=== PATIENT | female | born 1950 | race Caucasian/White ===

== ENCOUNTER 2018-12-30 13:11 | Observation (INO) | payer MEDICARE ==
[~2018-12-30] VITALS: Ht 160 cm; Wt 69.9 kg
[2018-12-30] VITALS (7 sets, daily range): BP systolic 118–149; BP diastolic 62–75
[~2018-12-30 13:11] MED LIST: ASPI-715 PO; CALC-547 PO; CETI10CA8 PO; CHOLESTEROL MED; CYC10 PO; FLUTR; LANS30CA70 PO; LISI-355 PO; MON10 PO; OLOOD OP; PER PO; RAL60 PO; [UNRECOGNIZED DRUG - CODE] PO; [UNRECOGNIZED DRUG - OTHER]
[2018-12-30] MEDS ORDERED: AMLO-125 PO (13:24)
[2018-12-30] MEDS ORDERED: ALLO100T70 PO (13:24)
[2018-12-30] MEDS ORDERED: OLOP30.53 NS (13:24)
[2018-12-30] MEDS ORDERED: LEVO25TA61 PO (13:24)
[2018-12-30] MEDS ORDERED: AMIT-106 PO (13:24)
[2018-12-30] MEDS ORDERED: METO25TA23 PO (13:24)
--- NOTE | 2018-12-30 14:01 | ER Report ---
History and Physical Time Seen By MD: 13:59 Hx. of Stated Complaint: LOWER ABD PAIN SINCE 0630 THIS AM THAT HAS GOTTEN WORSE. ACCOMPANIED BY DRY HEAVES. WAS CAMPING ALL WEEKEND. DENIES EATING ANY QUESTIONABLE FOOD. UNSURE IF ANY FEVERS. HAD A NORMAL BM THIS MORNING. GALLBLADDER REMOVED IN THE PAST HPI/ROS Lower abdominal pain since yesterday, but today pain worsened and pt. developed RLQ pain. Had normal BM today. Has not been able to take PO. Pain with driving to ED in car. s/p venu. No other abdominal surgeries. s/p breast cancer. No fever. No chest pain or SOB. Remainder of the 14 system rev: Yes Allergies: Coded Allergies: Penicillins (Verified Allergy, Mild, 12/30/18) ciprofloxacin (Verified Allergy, Mild, 12/30/18) tetracycline (Verified Allergy, Mild, 12/30/18) Uncoded Allergies: STATINS (Adverse Reaction, Unknown, 12/30/18) Home Meds Reported Medications Amitriptyline Hcl (AMITRIPTYLINE HCL) 25 Mg Tablet, 25 MG PO QHS, #5 TAB 12/30/18 Amlodipine Besylate (AMLODIPINE BESYLATE) 5 Mg Tablet, 1 TAB PO QDAY, TAB 12/30/18 Metoprolol Succinate (METOPROLOL SUCCINATE) 25 Mg Tab.er.24h, 1 TAB PO QDAY, TAB 12/30/18 Levothyroxine Sodium (LEVOTHYROXINE SODIUM) 25 Mcg Tablet, 25 MCG PO QDAY 12/30/18 Allopurinol (ALLOPURINOL) 100 Mg Tablet, 300 MG PO QDAY, TAB 12/30/18 Olopatadine Hcl (PATANASE) 30.5 Gm [place].pump, 30.5 GM NS 12/30/18 Aspirin (Aspirin) 81 Mg Tablet.dr, 81 MG PO, 0 Refills 03/21/11 Fluticasone Propionate (Flonase) 16 Gm [place], 0 NA QDAY, 0 Refills SPRAY 2 SPRAYS IN EACH NOSTRIL 03/21/11 Calcium Carbonate/Vitamin D3 (Calcium + D 600 Mg Tablet) 1 Each Tablet, 1 EACH PO, 0 Refills 03/21/11 Folic Acid/Mv,Fe,Other Min (Centrum Ultra Women's Tablet) 1 Each Tablet, 1 EACH PO, 0 Refills 03/21/11 Raloxifene Hcl (Evista) 60 Mg Tab, 60 MG PO QDAY, 0 Refills 03/21/11 Discontinued Reported Medications Cyclobenzaprine Hcl (Flexeril) 10 Mg Tab, 10 MG PO TID PRN, #15 0 Refills 03/21/11 Oxycodone/Acetaminophen (OXYCODONE/ACETAMINOPHEN 5MG/325 MG) 5 Mg/325 Mg Tab, 1 TAB PO Q4-6H PRN, #15 0 Refills 03/21/11 Cetirizine Hcl (Zyrtec) 10 Mg Capsule, 10 MG PO, 0 Refills 03/21/11 Olopatadine (Patanol) 5 Ml Drops, 1 GTT OP, 0 Refills 03/21/11 Lisinopril/Hydrochlorothiazide (Lisinopril-Hctz 04/04.5) 1 Each Tablet, 1 EACH PO, 0 Refills 03/21/11 Lansoprazole (Prevacid) 30 Mg Capsule.dr, 30 MG PO QDAY, 0 Refills 03/21/11 Montelukast Sodium (Singulair) 10 Mg Tab, 10 MG PO QDAY, 0 Refills 03/21/11 [Merol Dose Pack] No Conflict Check, 0 Refills 03/21/11 [Cholesterol Med] No Conflict Check, 0 Refills 03/21/11 Reviewed Nurses Notes: Yes Hx Smoking: No Hx Substance Use Disorder: No Hx Alcohol Use: Yes (OCC) Constitutional Vital Sign - Last 24 Hours 12/30/18 13:29 Temp 97.9 Pulse 58 Resp 20 B/P (MAP) 148/76 Pulse Ox 90 O2 Delivery Room Air Physical Exam General Appearance: The patient is alert, has no immediate need for airway protection and no current signs of toxicity. Eyes: Pupils equal and round no injection. Respiratory: Chest is non tender, lungs are clear to auscultation. Cardiac: regular rate and rhythm Gastrointestinal: Abdomen is soft with b/l lower quadrant TTP, R>L and focal TTP at McBurney's point, no masses, bowel sounds normal. Skin: No rashes or lesions. DIFFERENTIAL DIAGNOSIS: After history and physical exam differential diagnosis was considered for abdominal pain including but not limited to appendicitis, cholecystitis, gastritis and urinary tract infection. Medical Decision Making Data Points Result Diagram: 12/30/18 1419 12/30/18 1419 Laboratory Hematology Test 12/30/18 14:00 7/9/19 14:19 Urine Color Yellow Urine Clarity Clear Urine pH 6.0 pH (4.8-9.5) Urine Specific [place] 1.014 Urine Protein Negative mg/dL (NEGATIVE) Urine Glucose (UA) Negative mg/dL (NEGATIVE) Urine Ketones 20 mg/dL (NEGATIVE) Urine Blood Negative (NEGATIVE) Urine Nitrite Negative (NEGATIVE) Urine Bilirubin Negative (NEGATIVE) Urine Urobilinogen Negative mg/dL (0.2-1.9) Urine Leukocyte Esterase Negative (NEGATIVE) Urine RBC 1 /HPF (0-2/HPF) Urine WBC 2 /HPF (0-5/HPF) Urine Squamous Epithelial Cells Few /LPF (</=FEW) Urine Transitional Epithelial Cells Few /LPF (NONE-FEW) Urine Bacteria Negative /HPF (NONE-FEW) Urine Mucus Few /HPF (NONE-FEW) Red Blood Count 4.08 M/uL (4.17-5.56) Mean Corpuscular Volume 98.0 fL (80.0-96.0) Mean Corpuscular Hemoglobin 33.6 pg (26.0-33.0) Mean Corpuscular Hemoglobin Concent 34.3 g/dL (32.0-36.0) Red Cell Distribution Width 13.3 % (11.5-14.5) Mean Platelet Volume 8.4 fL (7.2-11.1) Neutrophils (%) (Auto) 89.5 % (39.4-72.5) Lymphocytes (%) (Auto) 7.2 % (17.6-49.6) Monocytes (%) (Auto) 2.7 % (4.1-12.4) Eosinophils (%) (Auto) 0.1 % (0.4-6.7) Basophils (%) (Auto) 0.5 % (0.3-1.4) Nucleated RBC Relative Count (auto) 0.1 /100WBC Neutrophils # (Auto) 9.2 K/uL (2.0-7.4) Lymphocytes # (Auto) 0.7 K/uL (1.3-3.6) Monocytes # (Auto) 0.3 K/uL (0.3-1.0) Eosinophils # (Auto) 0.0 K/uL (0.0-0.5) Basophils # (Auto) 0.0 K/uL (0.0-0.1) Nucleated RBC Absolute Count (auto) 0.01 K/uL Sodium Level 141 mmol/L (137-145) Potassium Level 3.9 mmol/L (3.5-5.0) Chloride Level 105 mmol/L (98-107) Carbon Dioxide Level 21 mmol/L (22-31) Blood Urea Nitrogen 16 mg/dl (7-18) Creatinine 0.60 mg/dl (0.52-1.04) Glomerular Filtration Rate Calc > 60.0 Random Glucose 116 mg/dl (75-110) Lactate 1.7 mmol/L (0.7-2.1) Calcium Level 9.5 mg/dl (8.4-10.2) Total Bilirubin 0.9 mg/dl (0.2-1.3) Aspartate Amino Transf (AST/SGOT) 53 U/L (0-35) Alanine Aminotransferase (ALT/SGPT) 40 U/L (0-56) Alkaline Phosphatase 81 U/L (0-126) Total Protein 7.5 g/dl (6.3-8.2) Albumin 4.6 g/dl (3.5-5.0) Lipase 28 U/L (23-300) Chemistry Test 12/30/18 14:00 12/30/18 14:19 Urine Color Yellow Urine Clarity Clear Urine pH 6.0 pH (4.8-9.5) Urine Specific [place] 1.014 Urine Protein Negative mg/dL (NEGATIVE) Urine Glucose (UA) Negative mg/dL (NEGATIVE) Urine Ketones 20 mg/dL (NEGATIVE) Urine Blood Negative (NEGATIVE) Urine Nitrite Negative (NEGATIVE) Urine Bilirubin Negative (NEGATIVE) Urine Urobilinogen Negative mg/dL (0.2-1.9) Urine Leukocyte Esterase Negative (NEGATIVE) Urine RBC 1 /HPF (0-2/HPF) Urine WBC 2 /HPF (0-5/HPF) Urine Squamous Epithelial Cells Few /LPF (</=FEW) Urine Transitional Epithelial Cells Few /LPF (NONE-FEW) Urine Bacteria Negative /HPF (NONE-FEW) Urine Mucus Few /HPF (NONE-FEW) White Blood Count 10.3 k/uL (4.5-11.0) Red Blood Count 4.08 M/uL (4.17-5.56) Hemoglobin 13.7 g/dL (12.0-16.0) Hematocrit 40.0 % (34.0-47.0) Mean Corpuscular Volume 98.0 fL (80.0-96.0) Mean Corpuscular Hemoglobin 33.6 pg (26.0-33.0) Mean Corpuscular Hemoglobin Concent 34.3 g/dL (32.0-36.0) Red Cell Distribution Width 13.3 % (11.5-14.5) Platelet Count 214 K/uL (150-450) Mean Platelet Volume 8.4 fL (7.2-11.1) Neutrophils (%) (Auto) 89.5 % (39.4-72.5) Lymphocytes (%) (Auto) 7.2 % (17.6-49.6) Monocytes (%) (Auto) 2.7 % (4.1-12.4) Eosinophils (%) (Auto) 0.1 % (0.4-6.7) Basophils (%) (Auto) 0.5 % (0.3-1.4) Nucleated RBC Relative Count (auto) 0.1 /100WBC Neutrophils # (Auto) 9.2 K/uL (2.0-7.4) Lymphocytes # (Auto) 0.7 K/uL (1.3-3.6) Monocytes # (Auto) 0.3 K/uL (0.3-1.0) Eosinophils # (Auto) 0.0 K/uL (0.0-0.5) Basophils # (Auto) 0.0 K/uL (0.0-0.1) Nucleated RBC Absolute Count (auto) 0.01 K/uL Glomerular Filtration Rate Calc > 60.0 Lactate 1.7 mmol/L (0.7-2.1) Calcium Level 9.5 mg/dl (8.4-10.2) Total Bilirubin 0.9 mg/dl (0.2-1.3) Aspartate Amino Transf (AST/SGOT) 53 U/L (0-35) Alanine Aminotransferase (ALT/SGPT) 40 U/L (0-56) Alkaline Phosphatase 81 U/L (0-126) Total Protein 7.5 g/dl (6.3-8.2) Albumin 4.6 g/dl (3.5-5.0) Lipase 28 U/L (23-300) Urinalysis Test 12/30/18 14:00 Urine Color Yellow Urine Clarity Clear Urine pH 6.0 pH (4.8-9.5) Urine Specific [place] 1.014 Urine Protein Negative mg/dL (NEGATIVE) Urine Glucose (UA) Negative mg/dL (NEGATIVE) Urine Ketones 20 mg/dL (NEGATIVE) Urine Blood Negative (NEGATIVE) Urine Nitrite Negative (NEGATIVE) Urine Bilirubin Negative (NEGATIVE) Urine Urobilinogen Negative mg/dL (0.2-1.9) Urine Leukocyte Esterase Negative (NEGATIVE) Urine RBC 1 /HPF (0-2/HPF) Urine WBC 2 /HPF (0-5/HPF) Urine Squamous Epithelial Cells Few /LPF (</=FEW) Urine Transitional Epithelial Cells Few /LPF (NONE-FEW) Urine Bacteria Negative /HPF (NONE-FEW) Urine Mucus Few /HPF (NONE-FEW) ED Course/Re-evaluation ED Course Acute appendicitis. Otherwise stable. Spoke with Dr. Silva who will admit the pt. and take to the OR this evening. Decision to Disposition Date: Dec 30, 2018 Decision to Disposition Time: 16:24 Depart Departure Latest Vital Signs Vital Signs Date Time Temp Pulse Resp B/P (MAP) Pulse Ox O2 Delivery O2 Flow Rate FiO2 12/30/18 13:29 97.9 58 20 148/76 90 Room Air Impression: Primary Impression: Appendicitis Condition: Improved Disposition: Admitted from ER Problem Qualifiers Primary Impression: Appendicitis Appendicitis type: acute appendicitis Acute appendicitis type: with generalized peritonitis Appendicitis gangrene presence: unspecified whether gangrene present Appendicitis perforation presence: unspecified whether perforation present Appendicitis abscess presence: without abscess Qualified Codes: K35.20 - Acute appendicitis with generalized peritonitis, without abscess SEAN ODEN MD Dec 30, 2018 14:01
[2018-12-30] MEDS ORDERED: NS(*) 0.9% 1000 ML BAG 1,000 ML IV ONE (14:05)
[2018-12-30 14:36] LABS: PLATELET COUNT, AUTOMATED 214 K/uL (150-450)
[2018-12-30] MEDS ORDERED: IOPAMIDOL 76% 100 ML INFUS BTL 100 ML ONE (15:23)
--- NOTE | 2018-12-30 15:59 | RADIOLOGY IMAGING REPORT ---
[place] [facility] [place] Jasmyn Montanez : 1950 MR: [id number] V: [id number] EXAM DATE: ORDERING PHYSICIAN: SEAN ODEN TECHNOLOGIST: Location: [facility] Patient: Jasmyn Montanez : 1950 Visit/Account:[id number] Date of Sevice: 12/30/2018 CT abdomen and pelvis with IV contrast Indication: Right lower abdominal pain. Comparison: None available. . Technique: Axial CT images were obtained through the abdomen and pelvis during injection of nonioni c iodinated intravenous contrast. Reformatted coronal and sagittal images were also obtained. One of the following dose optimization techniques was utilized in the performance of this exam: Autom ated exposure control; adjustment of the mA and/or kV according to the patient's size; or use of an i terative reconstruction technique. Specific details can be referenced in the facility's radiology C T exam operational policy. Contrast: 75 ml of Isovue-370 IV contrast. Findings: Lower lung gonzáles: Limited views lower lung field are unremarkable. The left breast implant is partia lly visualized and is heterogeneous with areas of increased attenuation and linear serpiginous foci. This is suggestive the inner capsule rupture. The outer capsule appears to be intact. Liver: No focal parenchymal abnormality of the liver. Biliary: Status post cholecystectomy. The biliary system is unremarkable. Pancreas: Normal appearance. Spleen: Normal appearance. Adrenal glands: Unremarkable. Kidneys / retroperitoneum: No evidence of nephrolithiasis or hydronephrosis. No focal abnormality. Bowel / peritoneum / mesenteries: Colon shows no focal abnormality. The cecum and appendix lie within the right upper pelvis. The appendix is abnormal showing dilatation up to 1.1 cm. There are couple s mall proximal appendicoliths present. The largest measures 1.0 x 0.4 cm. Periappendiceal inflammation is present without indication of perforation or fluid collection. The small bowel shows no focal abn ormality or obstruction. The stomach is unremarkable.. No free air, free fluid, fluid collections or other areas of inflammation. Lymph node assessment: No pathologic adenopathy identified. Pelvic structures: Pelvic structures visualized within normal limits. There are punctate calcifica tions in the uterus without other focal abnormality. Vessels: No significant atherosclerotic calcifications seen throughout a nonaneurysmal abdominal aort a and branches. Musculoskeletal / Body wall: No acute or aggressive osseous abnormality. Mild degenerative changes sp ine. IMPRESSION: 1. Acute uncomplicated appendicitis with proximal appendicoliths. The cecum and appendix are seen in the right upper pelvis. I called report to SEAN ODEN at 12/30/2018 3:51 PM. Report Dictated By: Blake Orosco at 12/30/2018 3:40 PM Report E-Signed By: Blake Orosco at 12/30/2018 3:52 PM WSN:[id number]
[2018-12-30] MEDS ORDERED: NS(*) 0.9% 1000 ML BAG 1,000 ML IV PRN (16:03)
[2018-12-30] MEDS ORDERED: ONDANSETRON 4 MG/2 ML VIAL IVP PRN (16:05)
[2018-12-30] MEDS ORDERED: FLUSH 10 ML SYR IVP PRN (16:05)
[2018-12-30] MEDS: MORPHINE 2 MG/ML SYR IVP PRN (17:10)
[2018-12-30] MEDS: metroNIDAZOLE* 500MG/100ML BAG 100 ML IVPB SCH (17:10)
[2018-12-30] MEDS ORDERED: PANT40TA65 PO (17:30)
[2018-12-30] MEDS ORDERED: LR(*) 1000 ML BAG 1,000 ML IV PRN (17:35)
[2018-12-30] MEDS ORDERED: DEXTROSE IV SCH (18:00)
[2018-12-30] MEDS ORDERED: SULFAMETHOXAZOLE IV SCH (18:00)
[2018-12-30] MEDS ORDERED: D5W IVPB SCH (18:00)
[2018-12-30] MEDS ORDERED: TRIMETHOPRIM IV SCH (18:00)
[2018-12-30] MEDS ORDERED: TRIMETH IVPB SCH (18:00)
[2018-12-30] MEDS ORDERED: SULFA IVPB SCH (18:00)
[2018-12-30] MEDS ORDERED: NORMOSOL R SOLN(*) 1000 ML BAG 1,000 ML IV ONE (18:00)
--- NOTE | 2018-12-30 18:48 | NUR ---
Patient experiencing itching to chest and arms following start of Bactrim IV. Dr. Silva notified.
[2018-12-30] MEDS ORDERED: DEXAMETHASONE SOD 4 MG/ML VIAL ONE (18:57)
[2018-12-30] MEDS ORDERED: ALBUMIN HUMAN 5% ONE (18:57)
[2018-12-30] MEDS ORDERED: SUGAMMADEX SOD 200 MG/2 ML SDV ONE (18:57)
[2018-12-30] MEDS ORDERED: fentaNYL CITR 250 MCG/5 ML AMP ONE (18:57)
[2018-12-30] MEDS ORDERED: ONDANSETRON 4 MG/2 ML VIAL ONE (18:57)
[2018-12-30] MEDS ORDERED: ROCURONIUM BR 10 MG/ML 5 ML SY 5 ML ONE (18:57)
[2018-12-30] MEDS ORDERED: PROPOFOL EMUL(*) 10MG/ML 20 ML 20 ML ONE (18:57)
[2018-12-30] MEDS ORDERED: LIDOCAINE MPF 1% 5 ML VIAL ONE (18:57)
[2018-12-30] MEDS ORDERED: KETAMINE HCL 200 MG/20 ML MDV ONE (18:59)
[2018-12-30] MEDS ORDERED: diphenhydrAMINE 50 MG/ML VIAL IVP PRN (19:00)
--- NOTE | 2018-12-30 19:20 | Gen Surgery History & Physical ---
History of Present Illness Chief Complaint RLQ abdominal pain History of Present Illness 68yo female presents with 1 day of abdominal pain. Started early this morning, about 14 hours ago. Lost appetite. Fevers, no chills. Nausea, no emesis. CT in ER c/w appendicitis with appendicoliths in lumen of appendix. I was consulted for further management. History Problems: (1) HTN (hypertension) Status: Chronic (2) Hyperlipidemia Status: Chronic (3) History of breast cancer in female Status: Chronic (4) History of Dianna fundoplication Status: Chronic (5) Hx laparoscopic cholecystectomy Status: Chronic (6) Status post total knee replacement, right Status: Chronic Home Meds Reported Medications Pantoprazole Sodium (PANTOPRAZOLE SODIUM) 40 Mg Tablet.dr, 40 MG PO BIDAC, TAB.SR 12/30/18 Amitriptyline Hcl (AMITRIPTYLINE HCL) 25 Mg Tablet, 25 MG PO QHS, #5 TAB 12/30/18 Amlodipine Besylate (AMLODIPINE BESYLATE) 5 Mg Tablet, 1 TAB PO QDAY, TAB 12/30/18 Metoprolol Succinate (METOPROLOL SUCCINATE) 25 Mg Tab.er.24h, 1 TAB PO BID, TAB 12/30/18 Levothyroxine Sodium (LEVOTHYROXINE SODIUM) 25 Mcg Tablet, 25 MCG PO QDAY 12/30/18 Allopurinol (ALLOPURINOL) 100 Mg Tablet, 300 MG PO QHS, TAB 12/30/18 Olopatadine Hcl (PATANASE) 30.5 Gm [place].pump, 30.5 GM NS PRN for ALLERGY SYMPTO MS 12/30/18 Aspirin (Aspirin) 81 Mg Tablet.dr, 81 MG PO QHS, 0 Refills 03/21/11 Fluticasone Propionate (Flonase) 16 Gm [place], 0 NA QDAY, 0 Refills SPRAY 2 SPRAYS IN EACH NOSTRIL 03/21/11 Calcium Carbonate/Vitamin D3 (Calcium + D 600 Mg Tablet) 1 Each Tablet, 1 EACH PO QHS, 0 Refills 03/21/11 Folic Acid/Mv,Fe,Other Min (Centrum Ultra Women's Tablet) 1 Each Tablet, 1 EACH PO QDAY, 0 Refills 03/21/11 Raloxifene Hcl (Evista) 60 Mg Tab, 60 MG PO QHS, 0 Refills 03/21/11 Discontinued Reported Medications Cyclobenzaprine Hcl (Flexeril) 10 Mg Tab, 10 MG PO TID PRN, #15 0 Refills 03/21/11 Oxycodone/Acetaminophen (OXYCODONE/ACETAMINOPHEN 5MG/325 MG) 5 Mg/325 Mg Tab, 1 TAB PO Q4-6H PRN, #15 0 Refills 03/21/11 Cetirizine Hcl (Zyrtec) 10 Mg Capsule, 10 MG PO, 0 Refills 03/21/11 Olopatadine (Patanol) 5 Ml Drops, 1 GTT OP, 0 Refills 03/21/11 Lisinopril/Hydrochlorothiazide (Lisinopril-Hctz 04/04.5) 1 Each Tablet, 1 EACH PO, 0 Refills 03/21/11 Lansoprazole (Prevacid) 30 Mg Capsule.dr, 30 MG PO QDAY, 0 Refills 03/21/11 Montelukast Sodium (Singulair) 10 Mg Tab, 10 MG PO QDAY, 0 Refills 03/21/11 [Merol Dose Pack] No Conflict Check, 0 Refills 03/21/11 [Cholesterol Med] No Conflict Check, 0 Refills 03/21/11 Allergies: Coded Allergies: Penicillins (Verified Allergy, Mild, 12/30/18) ciprofloxacin (Verified Allergy, Mild, 12/30/18) tetracycline (Verified Allergy, Mild, 12/30/18) Uncoded Allergies: STATINS (Adverse Reaction, Unknown, 12/30/18) Patient History: FH: breast cancer MATERNAL AUNT FH: lung cancer FATHER FH: stroke MOTHER FH: suicide BROTHER OR SISTER Review of Systems All Systems Reviewed/Normal: Yes, Except as Noted Constitutional: Fever Gastrointestinal: Nausea, Abdominal Pain Exam General Appearance: Alert, Awake, No Acute Distress, Afebrile Neuro: No Gross deficits GI: Other (Soft RLQ TTP with peritoneal irritation) Extremities: Warm, Perfused Psych: Alert & Oriented X3, Appropriate Mood & Affect Medical Decision Making Data Points Result Diagram: 12/30/18 1419 12/30/18 1419 Assessment and Plan Problems: (1) Appendicitis Status: Acute Assessment & Plan: 12/30/18: Admit, NPO, IV fluids, IV abx, to OR tonight for lap appy. I have explained the plan, including surgery, to the patient and her in great detail, along with the risks, alternatives, and expected recovery and their questions have been answered. They indicate their understanding of this plan, including lap appy, and they wish to proceed with surgery. Condition Stable. Time Spent: < 30 min Venous Thromboembolism VTE Risk Physician Assess for VTE Risk: Yes Patient's VTE Risk: Low VTE Diagnostic Test 2 Days Prior to Admit: No Antithrombotics Is Pt On Any Antithrombotics?: No Problem Qualifiers (1) Appendicitis: Appendicitis type: acute appendicitis Acute appendicitis type: with generalized peritonitis Appendicitis gangrene presence: unspecified whether gangrene present Appendicitis perforation presence: unspecified whether perforation present Appendicitis abscess presence: without abscess Qualified Codes: K35.20 - Acute appendicitis with generalized peritonitis, without abscess HADLEY SAUER MD Dec 30, 2018 19:20
[2018-12-30] MEDS ORDERED: FAMOTIDINE(*) 20MG/50ML PREMIX 50 ML IVPB ONE (19:30)
[2018-12-30] MEDS ORDERED: ROPIVACAINE 0.5% 20 ML VIAL ONE (19:34)
[2018-12-30] MEDS ORDERED: MIDAZOLAM 2 MG/2 ML VIAL IVP PRN (20:00)
--- NOTE | 2018-12-30 20:06 | EKG ---
FACILITY: [facility] [place] PATIENT NAME: APURVA GARCIA : [id number] MR: [id number] V: [id number] EXAM DATE: ORDERING PHYSICIAN: HADLEY SAUER TECHNOLOGIST: RODOLFO Shea Reason : PRE-OP Blood Pressure : / mmHG Vent. Rate : 086 BPM Atrial Rate : 086 BPM P-R Int : 194 ms QRS Dur : 092 ms QT Int : 396 ms P-R-T Axes : 037 -08 009 degrees QTc Int : 473 ms Normal sinus rhythm Low voltage QRS Cannot rule out Anterior infarct , age undetermined Abnormal ECG No previous ECGs available Confirmed by Umair Granado ([id number]) on 12/31/2018 6:54:04 AM Referred By: CRISTIANE Confirmed By:Umair Vasquez
--- NOTE | 2018-12-30 21:29 | Post Operative Progress Note ---
Post Operative Progress Note Date: Dec 30, 2018 Time: 21:22 Surgeon: Ricardo Dictation number: [id number] Anesthesia: GETA by Dr. Gray Pre-Op Diagnosis: Acute appendicitis Post-Op Diagnosis: ELEN Findings: C/W dx Procedure(s): Lap appy Specimen Removed:(May be N/A): appendix Complications: None Fluids: See anesthesia record Estimated Blood Loss: Minimal Date OP Note Dictated: Dec 30, 2018 Time OP Note Dictated: 21:23 HADLEY SAUER MD Dec 30, 2018 21:29
--- NOTE | 2018-12-30 22:21 | OPERATIVE REPORT 1 ---
EVENT DATE: December 30, 2018 SURGEON: Navjot Silva MD ANESTHESIOLOGIST: Jimmy Martins MD ANESTHESIA: General endotracheal anesthesia. PREOPERATIVE DIAGNOSIS Acute appendicitis. POSTOPERATIVE DIAGNOSIS Acute appendicitis. PROCEDURE PERFORMED Laparoscopic appendectomy. COMPLICATIONS None. CONDITION Stable. BLOOD LOSS Minimal. INDICATIONS This 68-year-old female presented to the Emergency Room in about 12 hours of right lower quadrant abdominal pain. A CT scan was consistent with appendicitis. She provided consent for laparoscopic appendectomy. DESCRIPTION OF PROCEDURE Patient was brought to the operating room and placed upon the operating table. General endotracheal anesthesia was administered, and her abdomen was prepped and draped in a sterile fashion. Timeout was completed, and I injected the infraumbilical skin with 0.5% ropivacaine plain. I made a curvilinear smiley face incision in the infraumbilical rim and dissected through the dermis and into the subcutaneous fat. I identified the midline fascia and made a vertical incision in the midline fascia, grasped the fascial edges with Rhianna clamps, retracted the fascia towards the ceiling and away from the underlying viscera and then bluntly entered the peritoneal cavity with a hemostat. I then placed two interrupted 0 Vicryl sutures transversely through the vertical fascial defect and inserted a 12 mm Adriana-type port through this wound and secured it into place with sutures. I then insufflated the abdomen to a pressure of 15 mmHg and inserted a 5 mm 30-degree angled scope through this port. Under direct visualization, I placed a 5 mm suprapubic port and a left lower quadrant 5 mm port. I then had the patient placed in Trendelenburg and planed towards her left, and I swept the small bowel away from the right lower quadrant. Some of the small bowel was adhesed to the purulent appendix. Once I had it freed up, which was rather easy, I grasped the mesoappendix and used the LigaSure and divided the mesoappendix all the way down flush with the cecum. I then used a stapler to divide the appendix flush with the cecum and then placed the appendix in a surgical specimen retrieval bag and removed it from the abdomen through the umbilical port site. I irrigated and dried the right lower quadrant and suctioned out some stray nahum, and then I inspected the mesoappendix and staple line, and there was no bleeding. Everything looked nice and clean. Quick exploration around the rest of the abdomen did not reveal any evidence of other intra-abdominal pathology. I then removed the 5 mm port, desufflated the abdomen, removed the camera, followed by the umbilical port, then placed a [id number] 0 Vicryl suture in between the first sutures, and then tied all three of these down with good reapproximation of the fascial edges. I then closed the skin at each incision with 4-0 Monocryl subcuticular sutures. Skin was cleaned and dried, and Steri-Strips were applied, followed by sterile surgical dressings. The patient was awakened, extubated in the operating room, and transported to the recovery room in stable condition having tolerated the procedure without any apparent problems. RAUL
[2018-12-31 00:01] VITALS: BP 128/72
[2018-12-31] MEDS: MORPHINE 2 MG/ML SYR IVP PRN (00:33)
[2018-12-31] MEDS: metroNIDAZOLE* 500MG/100ML BAG 100 ML IVPB SCH ×2 (00:33→08:18)
[2018-12-31 01:36] VITALS: BP 111/63
[2018-12-31 07:03] VITALS: BP 128/71
[2018-12-31] MEDS ORDERED: DOCU-416 PO (07:24)
[2018-12-31] MEDS ORDERED: TRAM-420 PO (07:24)
[2018-12-31] MEDS ORDERED: traMADol 50 MG TAB PO PRN (07:25)
--- NOTE | 2018-12-31 07:26 | Short(Outpt) Discharge Summary ---
Discharge Summary Reason for Hosp/Final Diag: (1) Appendicitis Status: Acute Hospital Course & Plan: 12/30/18: Admit, NPO, IV fluids, IV abx, to OR tonight for lap appy. I have explained the plan, including surgery, to the patient and her in great detail, along with the risks, alternatives, and expected recovery and their questions have been answered. They indicate their understanding of this plan, including lap appy, and they wish to proceed with surgery. 12/31/18: POD#1 s/p lap appy. DOing well. D/C to home. Departure Discharge to: Home, Self Care Discharge Instructions Home Meds Active Scripts Docusate Sodium (COLACE) 100 Mg Capsule, 1 CAP PO BID, #30 CAP 0 Refills TAKE WITH A FULL GLASS OF WATER Prov:HADLEY SAUER MD 12/31/18 Tramadol Hcl (TRAMADOL HCL) 50 Mg Tablet, 1 TAB PO Q4H PRN for PAIN, #20 TAB 0 Refills Prov:HADLEY SAUER MD 12/31/18 Reported Medications Pantoprazole Sodium (PANTOPRAZOLE SODIUM) 40 Mg Tablet.dr, 40 MG PO BIDAC, TAB.SR 12/30/18 Amitriptyline Hcl (AMITRIPTYLINE HCL) 25 Mg Tablet, 25 MG PO QHS, #5 TAB 12/30/18 Amlodipine Besylate (AMLODIPINE BESYLATE) 5 Mg Tablet, 1 TAB PO QDAY, TAB 12/30/18 Metoprolol Succinate (METOPROLOL SUCCINATE) 25 Mg Tab.er.24h, 1 TAB PO BID, TAB 12/30/18 Levothyroxine Sodium (LEVOTHYROXINE SODIUM) 25 Mcg Tablet, 25 MCG PO QDAY 12/30/18 Allopurinol (ALLOPURINOL) 100 Mg Tablet, 300 MG PO QHS, TAB 12/30/18 Olopatadine Hcl (PATANASE) 30.5 Gm [place].pump, 30.5 GM NS PRN for ALLERGY SY MPTOMS 12/30/18 Aspirin (Aspirin) 81 Mg Tablet.dr, 81 MG PO QHS, 0 Refills 03/21/11 Fluticasone Propionate (Flonase) 16 Gm [place], 0 NA QDAY, 0 Refills SPRAY 2 SPRAYS IN EACH NOSTRIL 03/21/11 Calcium Carbonate/Vitamin D3 (Calcium + D 600 Mg Tablet) 1 Each Tablet, 1 EACH PO QHS, 0 Refills 03/21/11 Folic Acid/Mv,Fe,Other Min (Centrum Ultra Women's Tablet) 1 Each Tablet, 1 EACH PO QDAY, 0 Refills 03/21/11 Raloxifene Hcl (Evista) 60 Mg Tab, 60 MG PO QHS, 0 Refills 03/21/11 Discontinued Reported Medications Cyclobenzaprine Hcl (Flexeril) 10 Mg Tab, 10 MG PO TID PRN, #15 0 Refills 03/21/11 Oxycodone/Acetaminophen (OXYCODONE/ACETAMINOPHEN 5MG/325 MG) 5 Mg/325 Mg Tab, 1 TAB PO Q4-6H PRN, #15 0 Refills 03/21/11 Cetirizine Hcl (Zyrtec) 10 Mg Capsule, 10 MG PO, 0 Refills 03/21/11 Olopatadine (Patanol) 5 Ml Drops, 1 GTT OP, 0 Refills 03/21/11 Lisinopril/Hydrochlorothiazide (Lisinopril-Hctz 1012.5) 1 Each Tablet, 1 EACH PO, 0 Refills 03/21/11 Lansoprazole (Prevacid) 30 Mg Capsule.dr, 30 MG PO QDAY, 0 Refills 03/21/11 Montelukast Sodium (Singulair) 10 Mg Tab, 10 MG PO QDAY, 0 Refills 03/21/11 [Merol Dose Pack] No Conflict Check, 0 Refills 03/21/11 [Cholesterol Med] No Conflict Check, 0 Refills 03/21/11 Diet: Regular Activity: As Tolerated Special Instructions: Follow up with your primary care provider in the next 10 days. You may remove the white surgical dressings on , 01/01/19, then you can shower. After showering, leave the incisions open to air but leave the steristrips in place until they fall off on their own. Do not immerse the incisions for 2 weeks. Problem Qualifiers (1) Appendicitis: Appendicitis type: acute appendicitis Acute appendicitis type: with generalized peritonitis Appendicitis gangrene presence: unspecified whether gangrene present Appendicitis perforation presence: unspecified whether perforation present Appendicitis abscess presence: without abscess Qualified Codes: K35.20 - Acute appendicitis with generalized peritonitis, without abscess HADLEY SAUER MD Dec 31, 2018 07:26
--- NOTE | 2018-12-31 08:17 | Antimicrobial Stewardship ---
Antimicrobial Time Out Antimicrobial Stewardship MD Service: Other (Dr Silva ) Indications: Other (Lap Appy) Antimicrobial Used Bactrim IV times 1; changed to Flagyl Start Date: Dec 30, 2018 Culture Results: N/A Eligible for PO Conversion Eligable for PO Conversion: Yes (i) Comments Comments Patient is being discharged on 12/31 post lap appy for appendicitis. JORGE CRAIG Dec 31, 2018 08:17
[2018-12-31] MEDS ORDERED: PANTOPRAZOLE SOD 40 MG IV VIAL IVP SCH (09:00)
[2018-12-31] MEDS ORDERED: DOCUSATE SODIUM 100 MG CAP PO SCH (09:00)
[2018-12-31] MEDS ORDERED: PANTOPRAZOLE SOD 40 MG TABEC PO SCH (09:00)
[2018-12-31 13:57] VITALS: Ht 160 cm; Wt 69.9 kg
== END 2018-12-31 07:27 | disposition home or self-care (01) ==
LOC: ER 14:03 → MED 16:26 → INTOOBSV 16:26
PROVIDERS: ADMIT Surgery; ATTEND Surgery
DX: K35.20 Acute appendicitis with generalized peritonitis, without abscess (principal); I10 Essential (primary) hypertension
CPT/HCPCS: 44970; 74177; 81001; 83605; 83690; 85025; 88304; 93005; 96360; 96361; 99284; A9270; G0378; J1100; J1200; J2001; J2270; J2405; J2704; J2795; J3010; J3490; J7030; Q9967; 82040; 82247; 82310; 82374; 82435; 82565; 82947; 84075; 84132; 84155; 84295; 84450; 84460; 84520; P9045